=== PATIENT | male | born 1995 | race Caucasian/White ===

== ENCOUNTER 2018-10-09 05:59 | Emergency (ER) | payer BC ==
[2018-10-09 06:03] VITALS: TEMP 97.5; BMI 24.3
[2018-10-09] MEDS ORDERED: SODIUM CHLORIDE 0.9% 500 ML INFUS.BAG IV ONE (06:26)
--- NOTE | 2018-10-09 07:36 | PDOC ---
History of Present Illness - History of Present Illness Initial Comments: 10/09/18 07:24 23 yo M with no significant pmh who presents found down on ground by police. Patient reports drinking unknown/large amount of alcohol yesterday evening (). Reports laying on ground outside his apartment building, and falling asleep. Patient brought in by police, not in custody. Denies fall, LOC, head trauma, neck trauma. Patient denies SI, HI, hallucinations, tremors [place], vision change, palpitations, cough, wheezing, orthopena, PND, leg swelling/pain, N/V, F,C, CP, SOB, urinary complaints, hematuria, BPR, abdominal pain, diarrhea, constipation, lightheadedness, weakness, sensory changes. PMHx: as noted above ROS: as noted SHx: Denies IVDA, tobacco use Allergies: NKDA <Huseyin Francis - Last Filed: 10/09/18 11:46> <Opal Lai - Last Filed: 10/10/18 22:09> - General Chief Complaint: Alcohol intoxication Stated Complaint: INTOX Time Seen by Provider: 10/09/18 07:22 Past History - Past Medical History COPD: No - Suicide/Smoking/Psychosocial Hx Smoking History: Never smoked <Huseyin Francis - Last Filed: 10/09/18 11:46> <Opal Lai - Last Filed: 10/10/18 22:09> - Past Medical History Allergies/Adverse Reactions: Allergies Allergy/AdvReac Type Severity Reaction Status Date / Time No Known Allergies Allergy Verified 10/09/18 06:01 Review of Systems - Review of Systems Comments:: 10/09/18 07:24 GENERAL/CONSTITUTIONAL: No fever or chills. No weakness. HEAD, EYES, EARS, NOSE AND THROAT: No change in vision. No ear pain or discharge. No sore throat. CARDIOVASCULAR: No chest pain or shortness of breath RESPIRATORY: No cough, wheezing, or hemoptysis. GASTROINTESTINAL: No nausea, vomiting, diarrhea or constipation. GENITOURINARY: No dysuria, frequency, or change in urination. MUSCULOSKELETAL: No joint or muscle swelling or pain. No neck or back pain. SKIN: No rash NEUROLOGIC: No headache, vertigo, loss of consciousness, or change in strength/ sensation. ENDOCRINE: No increased thirst. No abnormal weight change HEMATOLOGIC/LYMPHATIC: No anemia, easy bleeding, or history of blood clots. ALLERGIC/IMMUNOLOGIC: No hives or skin allergy. <Huseyin Francis - Last Filed: 10/09/18 11:46> *Physical Exam - Vital Signs Last Vital Signs Temp Pulse Resp BP Pulse Ox 97.5 F L 91 H 18 113/54 L 99 10/09/18 06:01 10/09/18 06:01 10/09/18 06:01 10/09/18 06:01 10/09/18 06:01 - Physical Exam Comments: 10/09/18 07:25 GENERAL: Awake, alert, and fully oriented, in no acute distress HEAD: No signs of trauma, normocephalic, atraumatic EYES: PERRLA, EOMI, sclera anicteric, conjunctiva clear ENT: Auricles normal inspection, hearing grossly normal, nares patent, oropharynx clear without exudates. Moist mucosa NECK: Normal ROM, supple, no lymphadenopathy, JVD, or masses LUNGS: No distress, speaks full sentences, clear to auscultation bilaterally HEART: Regular rate and rhythm, normal S1 and S2, no murmurs, rubs or gallops, peripheral pulses normal and equal bilaterally. ABDOMEN: Soft, nontender, normoactive bowel sounds. No guarding, no rebound. No masses EXTREMITIES : Normal inspection, Normal range of motion, no edema. No clubbing or cyanosis. NEUROLOGICAL: Cranial nerves II through XII grossly intact. Normal speech, normal gait, no focal sensorimotor deficits SKIN: Warm, Dry, normal turgor, no rashes or lesions noted <Huseyin Francis - Last Filed: 10/09/18 11:46> - Vital Signs Last Vital Signs Temp Pulse Resp BP Pulse Ox 97.5 F L 75 18 121/61 100 10/09/18 06:01 10/09/18 11:31 10/09/18 11:31 10/09/18 11:31 10/09/18 11:31 <Opal Lai - Last Filed: 10/10/18 22:09> ED Treatment Course - Medications Given in the ED: ED Medications Discontinued Medications Generic Name Dose Route Start Last Admin Trade Name Freq PRN Reason Stop Dose Admin Sodium Chloride 2,000 ml 10/09/18 06:26 10/09/18 06:26 Normal Saline - IV 10/09/18 06:27 2,000 ml NOW ONE Administration <Ty Francisson - Last Filed: 10/09/18 11:46> - Medications Given in the ED: ED Medications Discontinued Medications Generic Name Dose Route Start Last Admin Trade Name Phu PRN Reason Stop Dose Admin Sodium Chloride 2,000 ml 10/09/18 06:26 10/09/18 06:26 Normal Saline - IV 10/09/18 06:27 2,000 ml NOW ONE Administration <Opal Lai - Last Filed: 10/10/18 22:09> Medical Decision Making - Medical Decision Making 10/09/18 07:25 23 yo M with no significant pmh who presents found down on ground by police in setting of recent Etoh use. Vitals wnl, AF, A&Ox3. Physical exam unremarkable Patient denies SI, HI, hallucinations, tremors [place], palpitations, N/V, F,C, CP, SOB, urinary complaints, hematuria, BPR, abdominal pain, diarrhea, constipation , lightheadedness, weakness, sensory changes. No evidence closed head injury. Absent evidence Etoh withdrawal. Patient with adequate decision making capacity , A&Ox3. Ed Course: 10/09/18 11:46 Pt. sober with decision making capacity Stable for d/c with return precautions <Ty Francisson - Last Filed: 10/09/18 11:46> *DC/Admit/Observation/Transfer - Discharge Dispostion Decision to Admit order: No <Huseyin Francis - Last Filed: 10/09/18 11:46> <Opal Lai - Last Filed: 10/10/18 22:09> Diagnosis at time of Disposition: Alcohol intoxication Qualifiers: Complication of substance-induced condition: uncomplicated Qualified Code(s): F10.920 - Alcohol use, unspecified with intoxication, uncomplicated - Discharge Dispostion Disposition: HOME Condition at time of disposition: Stable - Patient Instructions Printed Discharge Instructions: DI for Alcohol Abuse Additional Instructions: Please return to the emergency department with any new or worsening symptoms or concerns. Please follow up with your primary care physician within 72 hours.
--- NOTE | 2018-10-09 07:56 | PDOC ---
Attending Attestation - Resident Resident Name: Huseyin Francis - ED Attending Attestation I have performed the following: I have examined & evaluated the patient, The case was reviewed & discussed with the resident, I agree w/resident's findings & plan - HPI HPI: 10/09/18 07:54 23 yo M who presents found down on ground by police intoxicated. Patient reports drinking unknown/large amount of alcohol yesterday evening. Reports laying on ground outside his apartment building, and falling asleep on the grass. Patient brought in by police, not in custody. Denies fall, LOC, head trauma, neck trauma. - Physicial Exam PE: 10/09/18 07:54 Agree with the resident's HPI and PE as documented in the electronic medical record. NAD, well appearing, EOMI, PERRL, MMM, nl conjunctiva, anicteric; neck supple. lungs clear, RRR, abdomen soft nontender. Back nontender. [place] x4, no focal neuro deficits. No peripheral edema. normal color for ethnicity, WWP. - Medical Decision Making 10/09/18 07:55 DDx. alcohol intoxication, alcohol withdrawal. drug intoxication Patient demonstrates clinical evidence for alcohol intoxication. The patient admits to intentional heavy drinking of alcohol and denies fall or injury. The patient also denies drug use. all parts of the body were evaluated and there is no evidence of acute trauma. The plan is to observe patient in the ED until clinical sobriety is reached and reassess history and physical examination. pt monitored closely in the ED in the AM, started on IVF over 1 hour ago. tolerated PO intake, remained comfortable, no acute events, VS remain stable. at time of discharge, clinically improved, sober, speech clear, gait stable. no acute neuro changes, normal mental status. no evidence of SI or HI or psychosis. discharge in stable condition. offered detox and resources for ETOH abuse. prompt follow up encouraged. 10/09/18 07:56
[2018-10-09] MEDS ORDERED: ACETAMINOPHEN 1000 MG/100 ML VIAL (NON FORMULARY) IVPB ONE (08:04)
[2018-10-09 11:31] VITALS: BP 121/61; PULSE 75
== END 2018-10-09 11:37 | disposition home or self-care (01) ==
LOC: JER 05:59
PROC: 3E0337Z Introduction of Electrolytic and Water Balance Substance into Peripheral Vein, Percutaneous Approach (ICD-10-PCS; principal; 2018-10-09)
DX: F10.129 Alcohol abuse with intoxication, unspecified (principal)
CPT/HCPCS: 99282-25